=== PATIENT | female | born 1940 | race Caucasian/White ===

== ENCOUNTER → 2017-09-15 | Outpatient (CLI) | payer OTHER ==
[~2017-09-15] MED LIST: ASPI81CH PO; Aspirin EC81 MG; Echinacea80 MG; HYDCHL25 PO; LEVO-T50 MCG PO; LEVSOD50 PO; LORA1 PO; LOSA25 PO; Metamucil Plus1 EACH PO; Metrocream45 GM TOP; PRAV20; PRAVASTATIN SOD10 MG PO; PROBIOTIC1 EAC1 PO; ROPI1 PO; TUMS300 MG PO; VITAMIN D22000 UNIT PO
[2017-09-15 19:37] LABS: Appearance, Urine Clear (Clear); Bilirubin, Urine Neg (Neg); Blood, Urine Neg (Neg); Color, Urine Yellow (P-Yellow); Glucose Qualitative, Urine Neg (Neg); Ketones, Urine Neg (Neg); Leukocyte Esterase, Urine Neg (Neg); Nitrite, Urine Neg (Neg); Protein, Urine Neg (Neg); Urobilinogen, Urine NORM (Normal)
== END | disposition home or self-care (01) ==
LOC: LAB SHORT 08:00 → LAB 08:00
PROVIDERS: Internal Medicine
DX: N39.0 Urinary tract infection, site not specified (principal)
CPT/HCPCS: 81003; 87077; 87086; 87186

== ENCOUNTER 2017-09-21 07:56 | Day surgery (SDC) | payer OTHER ==
[~2017-09-21 07:56] MED LIST changes: -ASPI81CH PO; -Aspirin EC81 MG; -Echinacea80 MG; -HYDCHL25 PO; -LEVO-T50 MCG PO; -LORA1 PO; -LOSA25 PO; -Metamucil Plus1 EACH PO; -Metrocream45 GM TOP; -PRAV20; -PROBIOTIC1 EAC1 PO; -ROPI1 PO; -TUMS300 MG PO; -VITAMIN D22000 UNIT PO
[2017-09-21] MEDS ORDERED: ROPI1 PO (10:16)
[2017-09-21] MEDS ORDERED: ASPI81CH PO (10:16)
[2018-02-15] MEDS ORDERED: LOSA25 PO (12:25)
[2018-02-15] MEDS ORDERED: Echinacea80 MG (12:26)
[2018-02-15] MEDS ORDERED: LEVO-T50 MCG PO (12:26)
[2018-02-15] MEDS ORDERED: Aspirin EC81 MG (12:26)
[2018-02-15] MEDS ORDERED: TUMS300 MG PO (12:27)
[2018-02-15] MEDS ORDERED: Metamucil Plus1 EACH PO (12:27)
[2018-02-15] MEDS ORDERED: LORA1 PO (12:27)
[2018-02-15] MEDS ORDERED: VITAMIN D22000 UNIT PO (12:31)
[2018-02-15] MEDS ORDERED: PROBIOTIC1 EAC1 PO (12:32)
[2018-02-15] MEDS ORDERED: Metrocream45 GM TOP (12:32)
[2018-02-15] MEDS ORDERED: ROPI1 PO (12:32)
[2018-02-15] MEDS ORDERED: PRAV20 (12:33)
== END 2017-09-21 11:35 | disposition home or self-care (01) ==
LOC: ATC 07:56
DX: R33.9 Retention of urine, unspecified (principal); I10 Essential (primary) hypertension; E78.5 Hyperlipidemia, unspecified; M85.80 Other specified disorders of bone density and structure, unspecified site; E03.9 Hypothyroidism, unspecified; Z79.899 Other long term (current) drug therapy; Z79.82 Long term (current) use of aspirin; Z88.8 Allergy status to other drugs, medicaments and biological substances; Z88.2 Allergy status to sulfonamides; Z88.1 Allergy status to other antibiotic agents
CPT/HCPCS: 51798

== ENCOUNTER 2017-12-18 19:44 | Emergency (ER) | payer OTHER ==
[~2017-12-18] VITALS: Ht 162.6 cm; Wt 64.0 kg
[~2017-12-18 19:44] MED LIST changes: +ASPI81CH PO; +ROPI1 PO
[2017-12-18] MEDS ORDERED: HYDCHL25 PO (20:46)
== END 2017-12-18 22:02 | disposition home or self-care (01) ==
LOC: ER 19:44
DX: I10 Essential (primary) hypertension (principal); E03.9 Hypothyroidism, unspecified; Z88.2 Allergy status to sulfonamides; Z91.040 Latex allergy status; Z88.8 Allergy status to other drugs, medicaments and biological substances; Z88.1 Allergy status to other antibiotic agents; Z91.018 Allergy to other foods; Z79.899 Other long term (current) drug therapy; Z79.82 Long term (current) use of aspirin
CPT/HCPCS: 99283

== ENCOUNTER 2018-02-25 12:08 | Day surgery (SDC) | payer OTHER ==
[~2018-02-25] VITALS: Ht 162.6 cm; Wt 62.2 kg
[~2018-02-25 12:08] MED LIST changes: +Aspirin EC81 MG; +Echinacea80 MG; +HYDCHL25 PO; +LEVO-T50 MCG PO; +LORA1 PO; +LOSA25 PO; +Metamucil Plus1 EACH PO; +Metrocream45 GM TOP; +PRAV20; +PROBIOTIC1 EAC1 PO; +TUMS300 MG PO; +VITAMIN D22000 UNIT PO
== END 2018-02-25 15:18 | disposition home or self-care (01) ==
LOC: ORSCSDS 12:08
PROVIDERS: Internal Medicine Gastroenterology
PROC: 0DBL8ZX Excision of Transverse Colon, Via Natural or Artificial Opening Endoscopic, Diagnostic (ICD-10-PCS; principal; 2018-02-25 13:45)
PROC: 0DBK8ZX Excision of Ascending Colon, Via Natural or Artificial Opening Endoscopic, Diagnostic (ICD-10-PCS; principal; 2018-02-25 13:45)
PROC: 0DBM8ZX Excision of Descending Colon, Via Natural or Artificial Opening Endoscopic, Diagnostic (ICD-10-PCS; principal; 2018-02-25 13:45)
DX: Z12.11 Encounter for screening for malignant neoplasm of colon (principal); D12.2 Benign neoplasm of ascending colon; D12.3 Benign neoplasm of transverse colon; K63.5 Polyp of colon; K57.30 Diverticulosis of large intestine without perforation or abscess without bleeding; Z86.010 Personal history of colon polyps; Z80.0 Family history of malignant neoplasm of digestive organs; I10 Essential (primary) hypertension; Z79.82 Long term (current) use of aspirin; Z79.899 Other long term (current) drug therapy

== ENCOUNTER 2018-03-26 12:26 | Day surgery (SDC) | payer OTHER ==
[~2018-03-26] VITALS: Ht 152.4 cm; Wt 63.0 kg
[2018-03-26 13:32] LABS: International Normalized Ratio 0.92; Prothrombin Time Results 9.5 Sec (9.7-11.5)
== END 2018-03-26 22:53 | disposition home or self-care (01) ==
LOC: MHTC 12:26
PROVIDERS: Internal Medicine Interventional Cardiology
DX: I87.2 Venous insufficiency (chronic) (peripheral) (principal)
CPT/HCPCS: 36415; 36465; 36475; 85610; 99152; 99153; C1769; C1888; C1894; J1644; J2250; J3010; J7040

== ENCOUNTER → 2019-03-03 | Outpatient (CLI) | payer OTHER ==
[2019-03-04 09:24] LABS: Candida species (DNA Probe) Negative (NEGATIVE); G. vaginalis (DNA Probe) Negative (NEGATIVE); T. vaginalis (DNA Probe) Negative (NEGATIVE)
[2019-03-05 13:07] LABS: HPV 16 Negative (Negative); HPV 18 Negative (Negative); HPV OTHER HR TYPES Negative (Negative)
== END | disposition home or self-care (01) ==
LOC: LAB SHORT 15:23 → LAB 15:23
PROVIDERS: Obstetrics & Gynecology
DX: Z01.419 Encounter for gynecological examination (general) (routine) without abnormal findings (principal); N76.0 Acute vaginitis
CPT/HCPCS: 87480; 87510; 87624; 87660; G0123

== ENCOUNTER → 2020-03-01 | Outpatient (CLI) | payer OTHER | END | disposition home or self-care (01) | LOC: LAB SHORT 17:40 → LAB 17:40 → LAB FUT 02-26 17:35 | DX: R10.13 Epigastric pain (principal) | CPT/HCPCS: 87338 ==

== ENCOUNTER 2020-03-13 22:23 | Emergency (ER) | payer OTHER ==
[~2020-03-13] VITALS: Ht 162.6 cm; Wt 63.5 kg
[2020-03-13] MEDS ORDERED: GABA100 PO (22:47)
== END 2020-03-13 23:43 | disposition home or self-care (01) ==
LOC: ER 22:23
DX: R20.0 Anesthesia of skin (principal); Z88.8 Allergy status to other drugs, medicaments and biological substances; Z88.2 Allergy status to sulfonamides; Z91.040 Latex allergy status; Z88.1 Allergy status to other antibiotic agents; Z91.018 Allergy to other foods; Z79.82 Long term (current) use of aspirin; Z79.899 Other long term (current) drug therapy; I10 Essential (primary) hypertension
CPT/HCPCS: 99283

== ENCOUNTER → 2021-06-08 | Outpatient (CLI) | payer OTHER ==
[~2021-06-08] MED LIST changes: +GABA100 PO
== END | disposition home or self-care (01) ==
LOC: LAB SHORT 12:12
DX: D48.5 Neoplasm of uncertain behavior of skin (principal)
CPT/HCPCS: 88305

== ENCOUNTER 2022-03-02 08:12 | Day surgery (SDC) | payer OTHER ==
[~2022-03-02] VITALS: Ht 160 cm; Wt 63.2 kg
[~2022-03-02 08:12] MED LIST changes: +TORS10 PO
== END 2022-03-02 09:56 | disposition home or self-care (01) ==
LOC: ORSCSDS 08:12
PROVIDERS: Ophthalmology
PROC: 08RK3JZ Replacement of Left Lens with Synthetic Substitute, Percutaneous Approach (ICD-10-PCS; principal; 2022-03-02 09:30)
DX: H25.12 Age-related nuclear cataract, left eye (principal); I10 Essential (primary) hypertension; E07.9 Disorder of thyroid, unspecified; Z79.82 Long term (current) use of aspirin; Z79.899 Other long term (current) drug therapy
CPT/HCPCS: J2001; J2250; J3010; J3301; J7040; V2632

== ENCOUNTER 2024-04-02 09:24 | Day surgery (SDC) | payer OTHER ==
[~2024-04-02] VITALS: Ht 160 cm; Wt 64.8 kg
[~2024-04-02 09:24] MED LIST changes: +Lactated Ringer's 1,000 ML IV ONE; +propofoL 50 ML IV ONE
[2024-04-02] MEDS ORDERED: Lactated Ringer's 1,000 ML IV ONE ×3 (10:02→11:53)
--- NOTE | 2024-04-02 10:10 | NUR ---
04/02/24 1010 Shayna Gasca PT. DENIES ANY PAIN.
--- NOTE | 2024-04-02 10:37 | NUR ---
04/02/24 Shayna Cordon PT. NOT CLEANED OUT AT THIS TIME. . OFFERED TO HAVE PT. DO SOME ENEMAS TO SEE IF IT WILL CLEAN HER OUT ENOUGH. PT. WISHES TO DO SOME EMEMAS & PROCEED LATER.
--- NOTE | 2024-04-02 11:21 | NUR ---
04/02/24 1121 BRANDYN BAUTISTA PT TO DO TWO ENEMAS AND RETURN TO SECOND ATTEMPT AT COLONOSCOPY.
[2024-04-02] MEDS ORDERED: Lidocaine HCl/Pf 1% 5 ML VIAL ONE (12:11)
[2024-04-02 14:49] VITALS: BP 128/74
== END 2024-04-02 14:35 | disposition home or self-care (01) ==
LOC: ORSCSDS 09:24
PROVIDERS: Specialist
PROC: 0DJD8ZZ Inspection of Lower Intestinal Tract, Via Natural or Artificial Opening Endoscopic (ICD-10-PCS; principal; 2024-04-02 10:15)
DX: K92.1 Melena (principal); Z86.010 Personal history of colon polyps; Z80.0 Family history of malignant neoplasm of digestive organs; K57.30 Diverticulosis of large intestine without perforation or abscess without bleeding; I10 Essential (primary) hypertension; E03.9 Hypothyroidism, unspecified; G47.33 Obstructive sleep apnea (adult) (pediatric); Z79.899 Other long term (current) drug therapy
CPT/HCPCS: J2001; J2704; J7120